=== PATIENT | male | born 1985 | race African-American/Black ===

== ENCOUNTER 2017-10-18 21:22 | Emergency (ER) | payer SELFPAY ==
[~2017-10-18] VITALS: Ht 172.7 cm; Wt 56.7 kg
[2017-10-18 21:40] VITALS: BP 127/78
[2017-10-18] MEDS ORDERED: Tylenol #3 tab (300mg/30mg) ORAL ONE (21:45)
[2017-10-18 21:52] VITALS: BP 127/78
--- NOTE | 2017-10-19 00:55 | Emergency Room Report ---
History of Present Illness General Chief Complaint: Medical Clearance Source: Patient Present Illness HPI 32-year-old male presents with clearance with [facility] Patient endorses history of sickle cell Complaining of pain to right arm Denies any recent trauma Is compliant with folic acid Distant transfusion, nothing recently Denies chest pain, shortness of breath, fevers or chills Allergies: Coded Allergies: RANITIDINE (Verified Allergy, Intermediate, 10/18/17) "I ITCH" Patient History Past Medical History: other - sickle cell Past Surgical History: none Pertinent Family History: none Social History: Denies: smoking, alcohol use, drug use Immunizations: UTD Reviewed Nursing Documentation: PMH: Agreed; PSxH: Agreed Nursing Documentation-PMH Past Medical History: No History, Except For Hx Cardiac Problems: No - SICKLE CELL Review of Systems All Other Systems: negative except mentioned in HPI Physical Exam Vital Signs Date Time Temp Pulse Resp B/P (MAP) Pulse Ox O2 Delivery O2 Flow Rate FiO2 10/18/17 21:26 98.7 77 16 129/74 96 Room Air 98.8 Sp02 EP Interpretation: reviewed, normal General Appearance: normal inspection, well appearing, no apparent distress, alert, GCS 15, non-toxic Head: normocephalic, atraumatic Eyes: bilateral eye PERRL, bilateral eye EOMI ENT: normal ENT inspection, hearing grossly normal, normal pharynx, no angioedema, normal voice, TMs + canals normal, uvula midline, moist mucus membranes Neck: normal inspection, full range of motion, supple, thyroid normal, no meningismus, no bony tend Respiratory: normal inspection, lungs clear, normal breath sounds, no rhonchi, no respiratory distress, no retraction, no accessory muscle use, no wheezing, speaking full sentences Cardiovascular #1: regular rate, rhythm, no edema, no JVD, normal capillary refill Gastrointestinal: normal inspection, normal bowel sounds, non tender, soft, no mass, no peritonitis, non-distended, no guarding, no hernia, no pulsatile mass Genitourinary: no CVA tenderness Musculoskeletal: normal inspection, back normal, normal range of motion, no calf tenderness, pelvis stable, Carri's Sign negative Neurologic: normal inspection, alert, oriented x3, responsive, store person III-XII nml as tested, motor strength/tone normal, cerebellar normal, normal gait, speech normal Psychiatric: normal inspection, judgement/insight normal, mood/affect normal, no suicidal/homicidal ideation, no delusions Skin: normal inspection, normal color, no rash Lymphatic: normal inspection, no adenopathy Medical Decision Making Diagnostic Impression: Primary Impression: Medical clearance for incarceration ER Course Vital signs stable, afebrile Lungs clear to auscultation - no chest pain or shortness of breath. Unlikely acute chest syndrome low suspicion that this is painful crisis given well appearance, normal vitals, no tenderness to shoulder or right arm Patient given 2 Tylenol codeine Advised to follow-up with PMD upon release Discharged with law enforcement Last Vital Signs Date Time Temp Pulse Resp B/P (MAP) Pulse Ox O2 Delivery O2 Flow Rate FiO2 10/18/17 21:52 98.7 10/18/17 21:26 77 16 129/74 96 Room Air Status: improved Disposition: HOME, SELF-CARE Condition: Improved Referrals: NOT CHOSEN IPA/,REFERRING (PCP) Patient Instructions: Medical Screening Exam Additional Instructions: - OK for booking - Patient has Sickle cell disease but unliklely to be in painful crisis or other emergency complication of SCD at this shante - Was treated with pain medication in the ER GRACIA ADAMS M.D. Oct 19, 2017 00:55
== END 2017-10-18 21:52 | disposition home or self-care (01) ==
LOC: EMR 21:30
DX: M79.601 Pain in right arm (principal); D57.1 Sickle-cell disease without crisis
CPT/HCPCS: 99283